=== PATIENT | female | born 1965 | race Caucasian/White ===

== ENCOUNTER 2017-11-19 09:06 | Emergency (ER) | payer MEDICAID ==
[~2017-11-19] VITALS: Ht 157.5 cm; Wt 104.5 kg
[~2017-11-19 09:06] MED LIST: CLA10T PO; DIPH1TAB PO; DULO-31 PO; HYDR1TAB PO; MEDR150D9 IM; OMEP-84 PO; PROM25TA14 PO; SYN0.0125T PO; TOP25T PO; ZOF4T PO
[2017-11-19] MEDS ORDERED: IBUP-1985 PO (09:50)
[2017-11-19 10:08] VITALS: BP 148/89
== END 2017-11-19 10:13 | disposition home or self-care (01) ==
LOC: ER 09:07
DX: M25.562 Pain in left knee (principal); E03.9 Hypothyroidism, unspecified; Z88.2 Allergy status to sulfonamides; Z88.8 Allergy status to other drugs, medicaments and biological substances; Z79.899 Other long term (current) drug therapy
CPT/HCPCS: 29505; 99283

== ENCOUNTER 2018-09-02 22:04 | Emergency (ER) | payer MEDICAID ==
[~2018-09-02] VITALS: Ht 157.5 cm; Wt 110.5 kg
[~2018-09-02 22:04] MED LIST changes: +IBUP-1985 PO
[2018-09-02 22:11] VITALS: BP 166/109
[2018-09-03] MEDS ORDERED: AMOX500C2 PO (00:31)
== END 2018-09-03 00:39 | disposition home or self-care (01) ==
LOC: ER 22:05
DX: J32.9 Chronic sinusitis, unspecified (principal); E03.9 Hypothyroidism, unspecified; Z88.2 Allergy status to sulfonamides; Z79.899 Other long term (current) drug therapy; Z98.890 Other specified postprocedural states
CPT/HCPCS: 99283

== ENCOUNTER 2019-03-26 19:58 | Emergency (ER) | payer MEDICAID ==
[~2019-03-26] VITALS: Ht 157.5 cm; Wt 115.0 kg
[2019-03-26 20:01] VITALS: BP 149/72
[2019-03-26] MEDS ORDERED: AMOX-422 PO (21:17)
== END 2019-03-26 21:32 | disposition home or self-care (01) ==
LOC: ER 19:59
DX: J32.0 Chronic maxillary sinusitis (principal); E03.9 Hypothyroidism, unspecified; Z98.890 Other specified postprocedural states; Z88.1 Allergy status to other antibiotic agents; Z88.2 Allergy status to sulfonamides; Z79.899 Other long term (current) drug therapy
CPT/HCPCS: 99283

== ENCOUNTER 2021-11-25 20:38 | Emergency (ER) | payer MEDICAID ==
[~2021-11-25] VITALS: Ht 157.5 cm; Wt 118.6 kg
[2021-11-25 20:53] VITALS: BP 124/89
[2021-11-25] MEDS ORDERED: AMOX-117 PO (22:56)
== END 2021-11-25 23:17 | disposition home or self-care (01) ==
LOC: ER 20:44
DX: J01.01 Acute recurrent maxillary sinusitis (principal); R51.9 Headache, unspecified; E03.9 Hypothyroidism, unspecified; Z98.890 Other specified postprocedural states; Z72.89 Other problems related to lifestyle; Z88.1 Allergy status to other antibiotic agents; Z88.8 Allergy status to other drugs, medicaments and biological substances; Z79.2 Long term (current) use of antibiotics; Z79.899 Other long term (current) drug therapy
CPT/HCPCS: 99283

== ENCOUNTER 2023-11-13 09:22 | Emergency (ER) | payer MEDICAID ==
[~2023-11-13] VITALS: Ht 157.5 cm; Wt 95.8 kg
[2023-11-13 09:29] VITALS: BP 134/77; PULSE 58; RESP 16; TEMP 98.5; O2SAT 98
[2023-11-13] MEDS: normal saline 1000ML IV soln IVB ONE (10:21)
[2023-11-13 10:25] LABS: BASOPHILS % (AUTO) 0.5 % (0-1); EOSINOPHILS # (AUTO) 0.1 X10'3 (0-0.9); EOSINOPHILS % (AUTO) 0.9 % (0-6); HEMATOCRIT 48.8 % (35.0-45.0); HEMOGLOBIN 16.6 g/dl (12.0-16.0); LYMPHOCYTES # (AUTO) 1.7 X10'3 (1.1-4.8); LYMPHOCYTES % (AUTO) 29.4 % (21-51); MEAN CORPUSCULAR HEMOGLOBIN 30.5 PG (27.0-31.0); MEAN CORPUSCULAR HGB CONC 33.9 g/dL (33.0-36.5); MEAN PLATELET VOLUME 8.4 FL (7.4-10.4); MONOCYTES # (AUTO) 0.8 X10'3 (0-0.9); MONOCYTES % (AUTO) 13.5 % (2-12); NEUTROPHILS # (AUTO) 3.3 X10'3 (1.8-7.7); NEUTROPHILS % (AUTO) 55.7 % (42-75); PLATELET COUNT 221 X10'3 (140-440); RED BLOOD COUNT 5.43 X10'6 (4.20-5.60); RED CELL DISTRIBUTION WIDTH 13.3 % (11.5-14.5); WHITE BLOOD COUNT 5.9 X10'3 (4.5-11.0)
[2023-11-13 10:36] LABS: ALBUMIN 3.8 G/DL (3.4-5.0); ANION GAP 14 (8-16); BLOOD UREA NITROGEN 18 MG/DL (7-18); CALCIUM 9.7 MG/DL (8.5-10.1); CHLORIDE 101 MMOL/L (99-107); CREATININE 0.72 MG/DL (0.40-0.90); GLUCOSE 78 MG/DL (70-104); POTASSIUM 3.6 MMOL/L (3.5-5.1); SODIUM 139 MMOL/L (135-145); TOTAL CARBON DIOXIDE 24.3 MMOL/L (24-32); eCRCL 68 ML/MIN; eGFR 83 ML/MIN
[2023-11-13] MEDS ORDERED: METR-159 PO (11:22)
== END 2023-11-13 11:41 | disposition home or self-care (01) ==
LOC: ER 09:23
DX: R19.7 Diarrhea, unspecified (principal); E03.9 Hypothyroidism, unspecified; Z72.89 Other problems related to lifestyle; Z88.8 Allergy status to other drugs, medicaments and biological substances; Z79.899 Other long term (current) drug therapy
CPT/HCPCS: 36415; 80048; 85025; 99283; J7030